=== PATIENT | female | born 1975 | race Caucasian/White ===

== ENCOUNTER 2018-01-17 09:49 | Emergency (ER) | payer SELFPAY ==
--- NOTE | 2018-01-17 10:05 | ED.PDOC ---
History of Present Illness - General Chief Complaint: Drug or Alcohol Abuse Stated Complaint: overdose Time Seen by Provider: 01/17/18 09:56 Source: EMS Exam Limitations: intoxication - History of Present Illness Initial Comments: Drug overdose/suicide attempt. found his . He noticed an empty bottle of fioricet that was almost full of 100 tablets. Also his bottle of NORCO AND XANAX were empty. THERE WAS A NOTE WRITTEN ON THE FIORICET BOTTLE BY HAND USING A MARKER THAT READS, "PLEASE , PLEASE TELL MAMA I'M SORRY." CALLED EMS, WHO BROUGHT PT TO ER. Timing/Duration: just prior to arrival Severity: severe Associated Symptoms: ingestion Allergies/Adverse Reactions: Allergies UNOBTAINABLE Allergy (Verified 01/17/18 10:10) Review of Systems - Review of Systems Unable to Obtain Due To: condition - ACUTE DELIRIUM Family Medical History - Family History Mother Family History: Unknown Living Status: Unknown Physical Exam - Physical Exam General Appearance: Agitated, Restless, Other - AGITATED BUT UNAWARE (DELIRIOUS) , MOANING, LAUGHING, CRYING BUT NOT ANSWERING QUESTIONS. Eyes, Ears, Nose, Throat Exam: PERRL/EOMI, normal ENT inspection, TMs normal, pharynx normal Neck: non-tender, full range of motion, supple, normal inspection Respiratory: chest non-tender, lungs clear, normal breath sounds, no respiratory distress, no accessory muscle use Cardiovascular/Chest: normal peripheral pulses, regular rate, rhythm, no edema, no gallop, no JVD, no murmur Peripheral Pulses: radial,right: 2+, radial,left: 2+ Gastrointestinal/Abdominal: normal bowel sounds, non tender, soft, no organomegaly, no pulsatile mass Extremities Exam: non-tender, normal range of motion, no evidence of injury 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 GCS 11 (EYES 4, VERBAL 2, MOTOR 5). Appearance: disheveled Behavior/Eye Contact/Speech: other - PER NEUROLOGICAL - ERRATIC NOISES. Thoughts/Hallucinations: other - UNABLE TO ASSESS - DOES NOT RESPOND TO QUESTIONS. Skin Exam: warm/dry, other - MULTIPLE WELL-HEALING EXCORIATIONS. Progress - Results/Orders Results/Orders: UNREMARKABLE, NEG, OR WNL: COAGS, CBC, CXR, EKG, ETOH. CMP: BUN 19, DEHYDRATION. LFTs ARE WNL. UA: TRACE PROTEIN, DARK, C/W DEHYDRATION. UDS: POS FOR TYLENOL, BARBITURATES, AMPHETAMINES, CANNABINOIDS. NEG FOR OPIATES AND BENZO THUS DID NOT ACUTELY INGEST NORCO OR XANAX. TYLENOL LEVEL: INTIAL 41. WILL REPEAT IN 2 HRS TO ENSURE DOES NOT INCR TO TOXIC LEVEL OF 150. POISON CONTROL WAS CONSULTED PRIOR TO TYLENOL LEVEL RESULTS AND THEY RECOMMENDED TO START N-ACETYLCYSTEINE D/T REPORT OF 90 FIORICET INGESTED. WILL CONSULT [facility] FOR PSYCH CONSULT, ONCE MEDICALLY CLEARED. 11:41 PT PREVIOUSLY WAS VERBALLY AGITATED AND NON-SENSICAL. NOW SHE IS TRYING TO CLIMB OUT OF THE BED AND WILL NOT RELAX. SHE DENIES ANY PAIN AND HAS NO TENDERNESS OF ABD, EXTREMITIES AND REPEAT EXAM AND THERE ARE NO SIGNS OF ACUTE TRAUMA. THUS IT SEEMS HER AGITATION IS PSYCHOLOGICALLY RELATED RATHER THAN PHYSICAL PAIN. THUS SINCE SHE IS STARTING TO BE OF DANGER TO HERSELF BY REPEATEDLY ATTEMPTING TO CLIMB OUT OF THE BED, A ONE-TIME DOSE OF HALDOL IM IS BEING GIVEN TO HELP CALM HER AGITATION. VSS. AWAITING REPEAT TYLENOL LEVEL. 13:30 REPEAT ACETAMINOPHEN LEVEL DECREASED TO 20, THUS NOT AT TOXIC LEVELS. WILL DC N-ACETYLCYSTEINE AFTER 1ST DOSE. PT IS NOW MEDICALLY CLEARED, THUS NURSE CALLED [facility] TO ASK ABOUT EVALUATING THE PT. THEY ASKED IF SHE IS COHERENT. SHE IS NOT, THUS THEY WILL NOT BE COMING UNTIL SHE IS LUCID. A RESULT, WE WILL TRY TO ADMIT TO [facility] FOR OBSERVATION. 14:30 I CALLED [facility] HOSPITALIST Adilene. HE SPOKE WITH THE NURSING STAFF AND HE INFORMED ME [facility] DOES NOT ADMIT OVERDOSE PATIENTS, EVEN IF THEY ARE MEDICALLY STABLE. I WILL CALL [facility] TO SEE IF THEY WILL TAKE ADMISSION. 14:[address] [facility]. BLANCO, HOSPITALIST, IS ACCEPTING TRANSFER AND FURTHER CARE FOR ACUTE INTENTIONAL BARBITURATE OVERDOSE. THANK YOU VERY MUCH, AND [facility]. Departure - Departure Clinical Impression: Suicide attempt, Overdose of barbiturate, Acute delirium, Dehydration, Proteinuria, Elevated BUN, Positive urine drug screen, Cannabis abuse with intoxication delirium Disposition: Transfer to Hospital Condition: Good Departure Forms: ED Discharge - Pt. Copy, Patient Portal Self Enrollment Instructions: DI for Drug Overdose in Adults Transfer to Outside Facility - Transfer Information Accepting Facility: [facility] Reason for Transfer: NEEDING ADMISSION FOR SUICIDE ATTEMPT BY DRUG OVERDOSE.
[2018-01-17] MEDS ORDERED: DEXTROSE 5% IVPB ONE (10:30)
[2018-01-17] MEDS ORDERED: ACETYLCYSTEINE IVPB ONE (10:30)
--- NOTE | 2018-01-17 10:31 | RAD ---
Study: Single Frontal View of the Chest. Indication:DRUG OVERDOSE, SUICIDE ATTEMPT Comparison: None. Impression: Heart size normal. Lungs clear. No acute osseous abnormality. Electronically signed by: Collins Parker MD 01/17/2018 10:29 AM CDT
[2018-01-17] MEDS ORDERED: ACETYLCYSTEINE INJECTION 200 MG/ML VIAL IVPB ONE (10:42)
[2018-01-17] MEDS ORDERED: DEXTROSE 5% 250ML 250 ML ONE (10:42)
[2018-01-17] MEDS ORDERED: SODIUM CHLORIDE 0.9% 1000ML 1,000 ML IVS ONE (11:22)
[2018-01-17] MEDS ORDERED: HALOPERIDOL LACTATE INJ 5 MG/ML VIAL IM ONE ×2 (11:39→11:40)
[2018-01-17] MEDS ORDERED: SODIUM CHLORIDE 0.9% 1000ML 1,000 ML IVS PRN (15:23)
[2018-01-17 15:35] VITALS: BP 114/62; TEMP 97.8; O2SAT 99
== END 2018-01-17 15:34 | disposition short-term general hospital (02) ==
LOC: ER 09:49
DX: T42.3X2A Poisoning by barbiturates, intentional self-harm, initial encounter (principal); T39.1X2A Poisoning by 4-Aminophenol derivatives, intentional self-harm, initial encounter; T42.4X2A Poisoning by benzodiazepines, intentional self-harm, initial encounter; E86.0 Dehydration; R94.4 Abnormal results of kidney function studies; F12.121 Cannabis abuse with intoxication delirium
CPT/HCPCS: 36415; 71045; 80053; 80307; 80320; 80329; 81001; 85025; 85610; 85730; 93005; J0132; J1630; J7030; J7060

== ENCOUNTER 2018-01-22 23:11 | Emergency (ER) | payer SELFPAY ==
[2018-01-22 23:33] VITALS: TEMP 99.1
[2018-01-22] MEDS ORDERED: ALPRAZolam 0.25 MG TAB PO ONE (23:34)
[2018-01-22] MEDS ORDERED: ALUM & MAG HYDROX-SIMETHICONE 30 ML, LIDOCAINE VISCOUS 2% 15 ML PO ONE ×2 (23:34)
[2018-01-22] MEDS ORDERED: ALUM & MAG HYDROX-SIMETHICONE 30 ML UD ONE (23:48)
[2018-01-22] MEDS ORDERED: LIDOCAINE HCL 2% (MOUTH-THROAT) 15 ML UD ONE (23:48)
--- NOTE | 2018-01-23 00:17 | RAD ---
EXAM DESCRIPTION: Abdomen Series CLINICAL HISTORY:42 years Female, epigastric ans substernal chest pain Comparison: None FINDINGS: The lungs are clear. There are no pleural abnormalities. The cardiac silhouette and pulmonary vessels. Supine and erect views of the abdomen show retained stool throughout the transverse and descending colon. No dilated loops of bowel. No abnormal air-fluid levels. No pathologic calcifications. IMPRESSION: No acute cardiopulmonary disease. Findings consistent with constipation. Electronically signed by: Diogenes Espinosa DO 01/23/2018 12:16 AM CDT
[2018-01-23] MEDS ORDERED: MAGNESIUM HYDROXIDE 30 ML UD PO ONE (00:24)
[2018-01-23] MEDS ORDERED: FAMOTIDINE 20 MG TAB PO ONE (00:29)
--- NOTE | 2018-01-23 00:32 | ED.PDOC ---
History of Present Illness - General Chief Complaint: Chest Pain/HI Stated Complaint: chest pain Time Seen by Provider: 01/22/18 23:16 Source: patient Exam Limitations: no limitations - History of Present Illness Initial Comments: the patient is a 42-year-old female presenting to the emergency room secondary to substernal and epigastric burning and aching for the last 24-36 hours. The patient had an overdose attempt on Fioricet approximately 4 days ago. She has had some stomach upset since that time. Yesterday at the start of the epigastric and substernal discomfort she took a whole bottle of Pepto- Bismol. She has had constipation problems start with , Pepto-Bismol obviously made things worse.symptoms are worse with lying back. They are not brought on by exertion. No cardiac history. She denies any drug use or inappropriate medical behavior since her return home. Timing/Duration: 24 hours Severity: moderate Improving Factors: medication Worsening Factors: nothing Associated Symptoms: chest pain Allergies/Adverse Reactions: Allergies NO KNOWN ALLERGY Allergy (Verified 01/22/18 23:33) Home Medications: Ambulatory Orders Famotidine 20 mg PO DAILY #30 tab 01/23/18 Potassium Chloride [Potassium Chloride ER] 20 meq PO DAILY #14 tab 01/23/18 Sucralfate Tab [Carafate Tab] 1 gm PO QID #120 tab 01/23/18 Review of Systems - Review of Systems Constitutional: States: malaise EENTM: States: no symptoms reported Respiratory: States: no symptoms reported Cardiology: States: chest pain. Denies: edema, palpitations, syncope Gastrointestinal/Abdominal: States: abdominal pain, constipation, nausea. Denies: diarrhea, vomiting Genitourinary: States: no symptoms reported Musculoskeletal: States: no symptoms reported Skin: States: no symptoms reported Neurological: States: anxiety Endocrine: States: no symptoms reported All other Systems: No Change from Baseline Past Medical History (General) - Patient Medical History Hx Seizures: No Hx Stroke: No Hx Dementia: No Hx Asthma: No Hx of COPD: No Hx Cardiac Disorders: No Hx Congestive Heart Failure: No Hx Pacemaker: No Hx Hypertension: No Hx Thyroid Disease: No Hx Diabetes: No Hx Gastroesophageal Reflux: No Hx Renal Disease: No Hx Cancer: Yes - Cervical CA Hx of HIV: No Hx Hepatitis C: No Hx MRSA: No Surgical History: Hysterectomy - Vaccination History Hx Influenza Vaccination: Yes - 2017 - Social History Hx Alcohol Use: Yes - occasional Family Medical History - Family History Mother Family History: Unknown Living Status: Unknown Physical Exam - Physical Exam General Appearance: Alert, Anxious, Other - the patient is tearful and anxious Eye Exam: bilateral normal Ears, Nose, Throat: hearing grossly normal, normal ENT inspection, normal pharynx Neck: full range of motion, supple Respiratory: lungs clear, normal breath sounds, no respiratory distress, no accessory muscle use Cardiovascular/Chest: normal peripheral pulses, regular rate, rhythm, no edema Peripheral Pulses: radial,right: 2+, radial,left: 2+, dorsalis pedis,right: 2+, dorsalis pedis,left: 2+ Gastrointestinal/Abdominal: soft, other - epigastric discomfort to palpation. 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 Comments: Vital Signs - 24 hr 01/22/18 01/22/18 23:20 23:27 Temperature 99.1 F Pulse Rate [ 66 66 monitor] Respiratory 16 Rate Blood Pressure 140/95 [Right Arm] O2 Sat by Pulse 98 Oximetry Progress - Progress Progress: 01/23/18 00:35 the patient is a 42-year-old female presented to the emergency room with what is most likely gastritis and esophagitis made worse by her recent overdose attempt. Laboratory work, EKG and x-rays were reassuring. She does have some significant constipation complicating the issue. She does need to avoid Pepto-Bismol. she was given a dose of milk of magnesia here tonight. If she needs something to coat her stomach she can use milk or Maalox or Mylanta. Additionally the patient will be written for Carafate and famotidine for the next month. She does have a mildly low potassium and will also be written for a low-dose potassium supplement. She needs to keep herself well hydrated. ER warnings were given for any significant worsening. - Results/Orders Results/Orders: acute abdominal series shows constipation. EKG shows normal sinus rhythm at 63 bpm. Normal R-wave progression. Mild right axis deviation. No acute ST segment or T-wave changes concerning for current ischemia. Laboratory Tests 01/22/18 01/22/18 01/22/18 23:32 23:33 23:33 WBC 6.5 RBC 4.76 Hgb 14.4 Hct 42.2 MCV 88.6 MCH 30.3 MCHC 34.2 RDW 13.8 Plt Count 308 MPV 7.8 Absolute Neuts (auto) 3.20 Absolute Lymphs (auto) 2.40 Absolute Monos (auto) 0.60 Absolute Eos (auto) 0.20 Absolute Basos (auto) 0.00 Neutrophils % 49.1 Lymphocytes % 37.9 Monocytes % 9.4 H Eosinophils % 3.3 Basophils % 0.3 PT 9.5 INR 0.95 PTT (SP) 22.3 Sodium 140 Potassium 3.2 L Chloride 104 Carbon Dioxide 26 Anion Gap 13.2 BUN 15 Creatinine 0.74 BUN/Creatinine Ratio 20.3 H Random Glucose 121 H Serum Osmolality 281.5 Calcium 9.3 Total Bilirubin < 0.2 L AST 38 ALT 46 Alkaline Phosphatase 44 Creatine Kinase 56 CK-MB (CK-2) 1.0 CK-MB (CK-2) % Not Reportable Troponin I < 0.02 B-Natriuretic Peptide 55.2 Serum Total Protein 6.5 Albumin 3.7 Globulin 2.8 Albumin/Globulin Ratio 1.3 Amylase 49 Lipase 60 H Serum HCG, Qual 01/22/18 23:33 WBC RBC Hgb Hct MCV MCH MCHC RDW Plt Count MPV Absolute Neuts (auto) Absolute Lymphs (auto) Absolute Monos (auto) Absolute Eos (auto) Absolute Basos (auto) Neutrophils % Lymphocytes % Monocytes % Eosinophils % Basophils % PT INR PTT (SP) Sodium Potassium Chloride Carbon Dioxide Anion Gap BUN Creatinine BUN/Creatinine Ratio Random Glucose Serum Osmolality Calcium Total Bilirubin AST ALT Alkaline Phosphatase Creatine Kinase CK-MB (CK-2) CK-MB (CK-2) % Troponin I B-Natriuretic Peptide Serum Total Protein Albumin Globulin Albumin/Globulin Ratio Amylase Lipase Serum HCG, Qual Negative Departure - Departure Clinical Impression: Esophagitis, Hypokalemia Gastritis Qualifiers: Gastritis type: unspecified gastritis Chronicity: acute Gastritis bleeding: without bleeding Qualified Code(s): K29.00 - Acute gastritis without bleeding Disposition: Discharge to Home or Self Care Condition: Fair Departure Forms: ED Discharge - Pt. Copy, Patient Portal Self Enrollment Instructions: Gastritis (DC), Acid Reflux (Gastroesophageal Reflux Disease), Adult (DC) Diet: bland diet Activity: increase activity as tolerated Prescriptions: Famotidine 20 mg PO DAILY #30 tab Potassium Chloride [Potassium Chloride ER] 20 meq PO DAILY #14 tab Sucralfate Tab [Carafate Tab] 1 gm PO QID #120 tab Home Medications: Ambulatory Orders Famotidine 20 mg PO DAILY #30 tab 01/23/18 Potassium Chloride [Potassium Chloride ER] 20 meq PO DAILY #14 tab 01/23/18 Sucralfate Tab [Carafate Tab] 1 gm PO QID #120 tab 01/23/18 Additional Instructions: the patient is a 42-year-old female presented to the emergency room with what is most likely gastritis and esophagitis made worse by her recent overdose attempt. Laboratory work, EKG and x-rays were reassuring. She does have some significant constipation complicating the issue. She does need to avoid Pepto-Bismol. she was given a dose of milk of magnesia here tonight. If she needs something to coat her stomach she can use milk or Maalox or Mylanta. Additionally the patient will be written for Carafate and famotidine for the next month. She does have a mildly low potassium and will also be written for a low-dose potassium supplement. She needs to keep herself well hydrated. ER warnings were given for any significant worsening. she should follow-up with her primary care doctor later next week.
[2018-01-23 00:57] VITALS: BP 137/86; O2SAT 97
== END 2018-01-23 00:58 | disposition home or self-care (01) ==
LOC: ER 23:11
DX: K29.00 Acute gastritis without bleeding (principal); K20.9 Esophagitis, unspecified; E87.6 Hypokalemia; R07.9 Chest pain, unspecified; Z85.41 Personal history of malignant neoplasm of cervix uteri

== ENCOUNTER 2018-04-27 22:36 | Emergency (ER) | payer SELFPAY ==
[2018-04-27] MEDS ORDERED: predniSONE 20 MG TAB PO ONE (22:51)
[2018-04-27] MEDS ORDERED: IBUPROFEN 200 MG TAB PO ONE (22:51)
--- NOTE | 2018-04-27 23:47 | ED.PDOC ---
History of Present Illness - General Chief Complaint: ENT Problem Stated Complaint: rt ear pain, mouth pain Time Seen by Provider: 04/27/18 22:46 Source: patient Exam Limitations: no limitations - History of Present Illness Initial Comments: the patient is a 42-year-old female presenting to the emergency room with some mild right ear pain and irritation to the palate upper palate of her mouth. There is mild erythema to the roof of her mouth. She does have mild erythema to her right tympanic membrane but no obvious infection. She has had a runny nose. Mild sore throat yesterday. Timing/Duration: 24 hours Severity: moderate Improving Factors: nothing Worsening Factors: nothing Associated Symptoms: denies symptoms Allergies/Adverse Reactions: Allergies NO KNOWN ALLERGY Allergy (Verified 01/22/18 23:33) Home Medications: Ambulatory Orders Famotidine 20 mg PO DAILY #30 tab 01/23/18 Potassium Chloride [Potassium Chloride ER] 20 meq PO DAILY #14 tab 01/23/18 Sucralfate Tab [Carafate Tab] 1 gm PO QID #120 tab 01/23/18 Review of Systems - Review of Systems Constitutional: States: malaise EENTM: States: see HPI Respiratory: States: no symptoms reported Cardiology: States: no symptoms reported Gastrointestinal/Abdominal: States: no symptoms reported Genitourinary: States: no symptoms reported Musculoskeletal: States: no symptoms reported Skin: States: no symptoms reported Neurological: States: no symptoms reported Endocrine: States: no symptoms reported All other Systems: No Change from Baseline Past Medical History (General) - Patient Medical History Hx Seizures: No Hx Stroke: No Hx Dementia: No Hx Asthma: No Hx of COPD: No Hx Cardiac Disorders: No Hx Congestive Heart Failure: No Hx Pacemaker: No Hx Hypertension: No Hx Thyroid Disease: No Hx Diabetes: No Hx Gastroesophageal Reflux: No Hx Renal Disease: No Hx Cancer: Yes - cervical Hx of HIV: No Hx Hepatitis C: No Hx MRSA: No Surgical History: Hysterectomy - Vaccination History Hx Tetanus, Diphtheria Vaccination: No Hx Influenza Vaccination: No Hx Pneumococcal Vaccination: No Immunizations Up to Date: No - Social History Hx Tobacco Use: Yes Hx Alcohol Use: Yes Family Medical History - Family History Mother Family History: Unknown Living Status: Unknown Physical Exam - Physical Exam General Appearance: Alert, No apparent distress Eye Exam: bilateral normal Ears, Nose, Throat: hearing grossly normal, other - see history of present illness Neck: full range of motion, supple Respiratory: lungs clear, normal breath sounds, no respiratory distress, no accessory muscle use Cardiovascular/Chest: normal peripheral pulses, regular rate, rhythm, no edema Peripheral Pulses: radial,right: 2+, radial,left: 2+ Rectal Exam: deferred Extremity: normal range of motion, normal capillary refill 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 The patient was given a dose of Motrin and prednisone here for symptomatic relief only. She can use [id number] Motrin 2-3 times daily with food to help reduce inflammation and irritation. She does need to keep herself well hydrated. ER warnings were given. Departure - Departure Clinical Impression: Stomatitis, Otalgia of right ear Disposition: Discharge to Home or Self Care Condition: Fair Departure Forms: ED Discharge - Pt. Copy, Patient Portal Self Enrollment Instructions: DI for Ear Pain-Adult, Mouth Sores Diet: regular diet Activity: increase activity as tolerated Home Medications: Ambulatory Orders Famotidine 20 mg PO DAILY #30 tab 01/23/18 Potassium Chloride [Potassium Chloride ER] 20 meq PO DAILY #14 tab 01/23/18 Sucralfate Tab [Carafate Tab] 1 gm PO QID #120 tab 01/23/18 Additional Instructions: the patient is a 42-year-old female presenting with what appears to be a mild stomatitis and right-sided otalgia most likely related to a viral infection. The patient was given a dose of Motrin and prednisone here for symptomatic relief only. She can use [id number] Motrin 2-3 times daily with food to help reduce inflammation and irritation. She does need to keep herself well hydrated. ER warnings were given.Mouthwash can prove beneficial for the stomatitis
[2018-04-28 00:09] VITALS: BP 112/78; TEMP 98.1; O2SAT 100
== END 2018-04-28 00:07 | disposition home or self-care (01) ==
LOC: ER 22:36
DX: K12.1 Other forms of stomatitis (principal); H92.01 Otalgia, right ear; Z85.41 Personal history of malignant neoplasm of cervix uteri
CPT/HCPCS: 87070; 87880; J7512